=== PATIENT | female | born 1965 | race Caucasian/White ===

== ENCOUNTER 2017-06-08 08:18 | Inpatient (IN) | payer BC ==
[2017-06-07 09:43] VITALS: BMI 39.4
[~2017-06-08 08:18] MED LIST: ceFAZolin SODIUM 1 GM VIAL IVPB ONE
[2017-06-08] MEDS ORDERED: MIDAZOLAM HCL 2 MG/2 ML SINGLE DOSE VIAL ONE ×3 (09:03→10:16)
[2017-06-08] MEDS ORDERED: ROCURONIUM BROMIDE 50 MG/5 ML VIAL ONE (09:03)
[2017-06-08] MEDS ORDERED: fentaNYL CITRATE 250 MCG/5 ML VIAL ONE (09:03)
[2017-06-08] MEDS ORDERED: ceFAZolin SODIUM 1 GM VIAL ONE (09:26)
[2017-06-08] MEDS ORDERED: DEXAMETHASONE SOD PHOSPHATE 4 MG/1 ML VIAL ONE (09:26)
[2017-06-08] MEDS ORDERED: KETOROLAC TROMETHAMINE 30 MG/1 ML VIAL ONE (09:26)
[2017-06-08] MEDS ORDERED: BUPIVACAINE HCL/PF 0.5% (5MG/ML) 10 ML VIAL ONE (09:48)
[2017-06-08] MEDS ORDERED: ONDANSETRON 4 MG/2 ML VIAL IVPUSH PRN ×2 (09:56→13:25)
[2017-06-08] MEDS ORDERED: LACTATED RINGERS SOLUTION 1,000 ML IV SCH (10:00)
[2017-06-08] MEDS ORDERED: DEXAMETHASONE SOD PHOSPHATE/PF 10 MG/ML SDV ONE (10:14)
[2017-06-08] MEDS ORDERED: BUPIVACAINE HCL/PF 0.25% (2.5MG/ML) 10 ML VIAL ONE (10:15)
[2017-06-08] MEDS ORDERED: ceFAZolin SODIUM 1 GM VIAL IVPB ONE (11:23)
[2017-06-08] MEDS ORDERED: BUPIVACAINE HCL/PF 0.5% (5MG/ML) 10 ML VIAL IJ ONE (13:06)
--- NOTE | 2017-06-08 13:30 | OP ---
Operative Note - Note: Operative Date: 06/08/17 Pre-Operative Diagnosis: Rule out leak/obstruction s/p sleeve gastrectomy Operation: EGD/upper endoscopy Post-Operative Diagnosis: Other (No leak/obstruction) Surgeon: Gilmar Krihsna Anesthesia: General Specimens Removed: None Estimated Blood Loss (mls): 0 Operative Report Dictated: Yes
--- NOTE | 2017-06-08 13:38 | OP ---
Operative Note - Note: Operative Date: 06/08/17 Pre-Operative Diagnosis: Morbid Obesity. Hypertension. Diabetes Mellitus Operation: Laparoscopic Vertical Sleeve Gastrectomy. Wedge biopsy of liver. Laparoscopic Lysis of adhesions. Diagnostic Laparoscopy Findings: Large amount of scar tissue from previous gastric surgery. Greater curve sleeve gastrectomy performed with #[address] Post-Operative Diagnosis: Same as Pre-op (; Hepatomegaly;) Surgeon: Len Harden Pediatric Dietician: Gilmar Krishna Anesthesia: General Specimens Removed: Greater curve of stomach. Wedge biopsy of liver Estimated Blood Loss (mls): 30 Operative Report Dictated: Yes
[2017-06-08] MEDS: METOCLOPRAMIDE HCL INJECTION 10 MG/2 ML VIAL IVPUSH SCH ×2 (13:50→18:56)
[2017-06-08 14:11] LABS: HEMATOCRIT 42.8 % (32.4-45.2); HEMOGLOBIN 14.3 GM/dL (10.7-15.3); MCH 28.7 pg (25.7-33.7); MCHC 33.3 g/dl (32.0-36.0); MEAN CELL VOLUME 86.3 fl (80-96); MEAN PLT VOLUME 9.5 fl (7.5-11.1); PLATELET COUNT 255 K/MM3 (134-434); RBC 4.96 M/mm3 (3.60-5.2); RDW 13.5 % (11.6-15.6); WHITE BLOOD COUNT 14.6 K/mm3 (4.0-10.0)
--- NOTE | 2017-06-08 14:13 | HP ---
DATE OF ADMISSION: 06/08/2017 CHIEF COMPLAINT: Morbid obesity. HISTORY OF PRESENT ILLNESS: The patient is a 51-year-old woman with history of morbid obesity for many years despite multiple attempts at dietary weight loss. She has retrieved nutritional, psychological, and cardiac evaluation and clearance prior to being admitted for elective bariatric surgery. PAST MEDICAL HISTORY: Significant for diabetes, hypertension. PAST SURGICAL HISTORY: Significant for: 1. Laparoscopic sleeve gastrectomy. 2. Hysterectomy. REVIEW OF SYMPTOMS: Neurologic: Within normal limits. Gastrointestinal: Within normal limits. Pulmonary: Within normal limits. Cardiovascular: Within normal limits. Musculoskeletal: Within normal limits. PHYSICAL EXAMINATION: General: Awake, alert, morbidly obese woman in no acute distress. HEENT: Examination showed no masses palpable. Lungs: Clear bilaterally. Heart: Regular. Sinus rhythm. Abdomen: Well-healed previous trocar sites. Morbidly obese, soft, nontender on palpation. Extremities: Within normal limits. PREOPERATIVE MEDICATIONS: The patient had: 1. Acetazolamide. 2. Hydrochlorothiazide. 3. Potassium chloride. IMPRESSION: Morbid obesity. PLAN: Surgery for laparoscopic vertical sleeve gastrectomy. Elvis [id number]
--- NOTE | 2017-06-08 14:35 | OP ---
DATE OF OPERATION: 06/08/2017 PREOPERATIVE DIAGNOSES: 1. Morbid obesity. 2. Diabetes mellitus. 3. Hypertension. POSTOPERATIVE DIAGNOSES: 1. Morbid obesity. 2. Diabetes mellitus. 3. Hypertension. 4. Hepatomegaly. 5. Abdominal adhesions. PROCEDURE PERFORMED: 1. Laparoscopic vertical sleeve gastrectomy. 2. Wedge biopsy of the liver. 3. Laparoscopic lysis of adhesions. 4. Diagnostic laparoscopy. OPERATING SURGEON: Len Harden MD INVESTMENT MANAGER: Gilmar Krishna MD ANESTHESIA: General. OPERATIVE PROCEDURE: The patient was brought into the operating room, placed on the OR table in the supine position. All precautions were taken initially including padding for the back and the feet, and Venodyne boots were placed on both lower extremities. At that point, the abdomen was prepped and draped in the usual manner. A Veress needle was placed in the left upper quadrant, and a pneumoperitoneum was established. A number 12 bladeless trocar was placed in the left upper quadrant. Through that trocar, a laparoscopic camera was placed. There were noted to be adhesions between the omentum and the anterior abdominal wall. Under direct vision, a number 15 bladeless trocar was placed in the midline in a supraumbilical position and a number 5 bladeless trocar in the right upper quadrant. Now, using those as the camera and the working port, the adhesions that were around the left upper quadrant number 12 trocar were lysed with the LigaSure device. Once these were completed, a number 5 bladeless trocar was placed below the left costal margin. There were now noted to be adhesions between the anterior stomach wall and the liver, and this was lysed with the LigaSure device, also. At this point, a Kamila liver retractor was placed in the epigastrium to retract the left lobe of the liver. The patient was then placed in a 20-degree reverse Trendelenburg position by Anesthesia. There was noted to be scar tissue on the greater curvature stomach from previous surgery. With the operating surgeon lifting the stomach upward, the school psychologist assistant surgeon retracted the omentum and scar tissue inferiorly. The operating surgeon was able to take the LigaSure device and dissect the scar tissue off the greater curve of stomach until the entire greater curve from 6 cm proximal to pylorus, up to the proximal fundus of the stomach was now free of all scar tissue. There were also adhesions between the undersurface of the stomach, and these were lysed also very carefully with the LigaSure device. At this juncture, Anesthesia placed a number 36 bougie. With the bougie held along the lesser curvature, a series of clementine were performed with the first two being black load clementine, 6 cm in length along the bougie. This was followed by a series of purple clementine, 6 cm in length until a final staple was fired in the left upper quadrant. The greater curve was now completely detached from the lesser curve. It should be noted that prior to firing each staple, both the anterior and posterior roe were checked that they were intact or equal in distance and an area of esophagogastric junction approximately 1 to 1.5 cm of serosa remained on the anterior and posterior surfaces. At this point, attention was directed to the left lobe of the liver which was extremely enlarged and difficult to lift up because it was so heavy. Fearing some pathology here, decided to take a wedge biopsy. With the LigaSure device on the inferior edge of the left lobe, a portion of liver, triangular in shape, was taken, and this was sent off the field to Pathology as a specimen. The little bleeding was easily controlled with the laparoscopic cautery. At this juncture, Dr. Krishna stepped out of surgery and performed an upper endoscopy. The details will be described in his procedure note, but essentially, it showed that there was no obstruction as the endoscope passed all the way to the pylorus, and when filled with air, there were no signs of any air leaks coming from the staple line. At this point, the resected greater curve was removed with a number 15 trocar site and sent off the field as specimen to Pathology. Under direct vision, the number 15 and number 12 trocar sites were closed with Endo Closure device to prevent internal hernia and to prevent bleeding. Under direct vision, all trocars were removed, and pneumoperitoneum was released. All trocar sites received 0.25% Marcaine, were closed with 4-0 Biosyn in subcuticular fashion. The number 15 trocar site was first closed with 3-0 Vicryl in the subcutaneous tissue, followed by 4-0 Biosyn in the subcuticular tissue. Dressings were applied. The patient awoke from anesthesia, transferred out of the operating room to the recovery room in stable condition. Expected blood loss was 30 mL. Patient transferred to recovery room in stable condition. Elvis [id number]
[2017-06-08 14:44] LABS: ALBUMIN 3.8 g/dl (3.4-5.0); ANION GAP 10 (8-16); BILIRUBIN,TOTAL 0.3 mg/dL (0.2-1.0); BLOOD UREA NITROGEN 15 mg/dL (7-18); CALCIUM 8.5 mg/dL (8.5-10.1); CHLORIDE 108 mmol/L (98-107); CO2 24 mmol/L (21-32); CREATININE 0.8 mg/dL (0.55-1.02); GLUCOSE,RANDOM 186 mg/dL (74-106); POTASSIUM 3.5 mmol/L (3.5-5.1); SGOT/AST 106 U/L (15-37); SGPT/ALT 95 U/L (12-78); SODIUM 142 mmol/L (136-145)
[2017-06-08 14:45] LABS: ALK PHOS 88 U/L (45-117)
[2017-06-08] MEDS: SODIUM CHLORIDE 1,000 ML IV SCH (15:20)
[2017-06-08] MEDS ORDERED: METOCLOPRAMIDE HCL 10 MG TABLET (FP) PO SCH (16:30)
[2017-06-08] MEDS ORDERED: MEPERIDINE HCL CARPU-JECT 50 MG/1 ML DISP.SYRIN IM PRN (17:06)
--- NOTE | 2017-06-08 17:31 | OP ---
DATE OF OPERATION: 06/08/2017 SURGEON: Gilmar Krishna MD PREOPERATIVE DIAGNOSIS: Rule out leak/obstruction after laparoscopic vertical sleeve gastrectomy. POSTOPERATIVE DIAGNOSIS: No leak/no obstruction. PROCEDURE: Upper endoscopy/esophagogastroduodenoscopy. SPECIMEN: None. ANESTHESIA: GET. REASON FOR PROCEDURE: This is a 51-year-old female who is undergoing a laparoscopic vertical sleeve gastrectomy by Dr. Len Harden. At the end of the procedure, there was a request for an upper endoscopy/EGD to rule out obstruction or leak. DESCRIPTION OF PROCEDURE: The endoscope was inserted in the patient's mouth, and the entirety of the esophagus, GE junction, gastric pouch, and staple line were inspected. Hemostasis was noted. No leak or obstruction was noted. The stomach was suctioned, then the endoscope removed. The remainder of the procedure was continued. The patient tolerated the procedure well and transferred to recovery room in stable condition. Elvis SOLORIO/[id number]
[2017-06-08] MEDS: FAMOTIDINE 20 MG/50 ML IVPB 20 MG/50 ML MG IVPB SCH (21:14)
[2017-06-08] MEDS: ENOXAPARIN NA (PORCINE) 40 MG/0.4 ML DISP.SYRIN SQ SCH (21:14)
[2017-06-09] MEDS: METOCLOPRAMIDE HCL INJECTION 10 MG/2 ML VIAL IVPUSH SCH ×3 (01:09→13:44)
[2017-06-09 07:02] LABS: ALBUMIN 3.3 g/dl (3.4-5.0); ANION GAP 9 (8-16); BLOOD UREA NITROGEN 15 mg/dL (7-18); CALCIUM 7.9 mg/dL (8.5-10.1); CHLORIDE 107 mmol/L (98-107); CO2 25 mmol/L (21-32); GLUCOSE,RANDOM 145 mg/dL (74-106); POTASSIUM 3.5 mmol/L (3.5-5.1); SGPT/ALT 90 U/L (12-78); SODIUM 141 mmol/L (136-145)
[2017-06-09 07:03] LABS: HEMATOCRIT 37.4 % (32.4-45.2); HEMOGLOBIN 12.9 GM/dL (10.7-15.3); MCH 29.4 pg (25.7-33.7); MCHC 34.5 g/dl (32.0-36.0); MEAN CELL VOLUME 85.2 fl (80-96); MEAN PLT VOLUME 9.7 fl (7.5-11.1); PLATELET COUNT 265 K/MM3 (134-434); RBC 4.39 M/mm3 (3.60-5.2); RDW 13.3 % (11.6-15.6); WHITE BLOOD COUNT 12.5 K/mm3 (4.0-10.0)
[2017-06-09 07:05] LABS: ALK PHOS 75 U/L (45-117); BILIRUBIN,TOTAL 0.6 mg/dL (0.2-1.0); CREATININE 0.7 mg/dL (0.55-1.02); SGOT/AST 85 U/L (15-37); TOT PROT 6.2 g/dl (6.4-8.2)
[2017-06-09] MEDS: FAMOTIDINE 20 MG/50 ML IVPB 20 MG/50 ML MG IVPB SCH (09:54)
[2017-06-09] MEDS: ENOXAPARIN NA (PORCINE) 40 MG/0.4 ML DISP.SYRIN SQ SCH (09:54)
[2017-06-09] MEDS: SODIUM CHLORIDE 1,000 ML IV SCH (09:54)
[2017-06-09 14:05] VITALS: TEMP 98.2
[2017-06-09] MEDS ORDERED: FLU VACCINE QUAD 60 MCG/0.5 ML (MDV 17-18) IM ONE (16:15)
--- NOTE | 2017-06-09 18:32 | PN ---
Progress Note (short form) - Note Progress Note: POD#1 Afebrile;VSS [id number] Pt doing well Lucho PO clear liquids- 3 oz po tid P/E- Abd- trocar sites clean, dry UGI- no leak, no obstruction WBC-12.9 (decreased) H/H-12.5/37.4 P- D/C pt home Cont po clear liquids- 3oz po 4-5 times per day F/U in 5 days
[2017-06-09 19:33] VITALS: BP 126/70; PULSE 85
--- NOTE | 2017-06-13 09:39 | PATH ---
Surgical Pathology Report Patient Name: RAHAT WILLS [facility]. Rec. #: [id number] /Age/Gender: 1965 (Age: 51) / F Account: [id number] Location: 4 W TELEMETRY U Taken: 06/08/2017 Received: 06/09/2017 Reported: 06/13/2017 Physicians: Len Harden M.D. Specimen(s) Received A: GREATER CURVATURE STOMACH B: LIVER BIOPSY Clinical History Morbid obesity Final Diagnosis A. STOMACH, GREATER CURVATURE, SLEEVE GASTRECTOMY: PORTION OF GASTRIC FUNDUS WITH HYPERPLASTIC POLYP. IMMUNOSTAIN FOR H. PYLORI IS NEGATIVE. B. LIVER, WEDGE BIOPSY: MODERATE TO MARKED MACROVESICULAR STEATOSIS. IRON STAIN IS NEGATIVE FOR SIDEROSIS. NO INCREASED FIBROSIS IDENTIFIED WITH TRICHROME STAIN. Electronically Signed Yoandy Hammond M.D. Gross Description A. Received in formalin, labeled "greater curvature of the stomach," is a 65 gram, 17.0 x 3.0 x 2.0 cm. portion of stomach with a stapled margin of resection. The serosa is lozano-granados with minimal attached fat. The mucosa displays a 0.5 cm in greatest dimension possible polyp. The remaining mucosa is lozano with normal folds. Private Client Advisor sections are submitted in 2 cassettes as follows: 1-possible mucosal polyp; 2-high school admissions representative sections of stomach. B. Received in formalin labeled "liver biopsy," are 2 lozano, irregular portions of soft tissue measuring 1.6 x 0.7 x 0.4 cm and 2.7 x 1.2 x 1.0 cm. Private Client Advisor sections are submitted in one cassette. 06/09/2017 [facility]
== END 2017-06-09 18:51 | disposition home or self-care (01) | DRG 621 ==
LOC: JSAMEDAYSX 08:18 → EDSTATUS 11:00 → J4W 15:42
PROVIDERS: ADMIT Surgery; ATTEND Surgery
PROC: 0DB64Z3 Excision of Stomach, Percutaneous Endoscopic Approach, Vertical (ICD-10-PCS; principal; 2017-06-08 10:00)
PROC: 0FB24ZX Excision of Left Lobe Liver, Percutaneous Endoscopic Approach, Diagnostic (ICD-10-PCS; 2017-06-08 10:00)
PROC: 0DJ08ZZ Inspection of Upper Intestinal Tract, Via Natural or Artificial Opening Endoscopic (ICD-10-PCS; 2017-06-08 10:00)
DX: E66.01 Morbid (severe) obesity due to excess calories (principal); R16.0 Hepatomegaly, not elsewhere classified; E11.9 Type 2 diabetes mellitus without complications; I10 Essential (primary) hypertension
CPT/HCPCS: 36415; 74241-TC-FY; 80053; 85027; 86850; 86900; 86901; 88305-TC; 88307-TC; 94010; 94760; J7030